=== PATIENT | female | born 1970 | race Caucasian/White ===

== ENCOUNTER 2023-07-15 17:45 | Emergency (ER) | payer OTHER, SELFPAY ==
[2023-07-15 17:53] VITALS: BP 125/72; PULSE 65; RESP 18; TEMP 37; O2SAT 100; BMI 18.9
--- NOTE | 2023-07-15 18:12 | CT_ITS ---
Patient: ROBBY CARRION Facility:?[facility] Patient ID:?[id number] Site Patient ID:?[id number]. Site :?[id number] Study:?CT-Abdomen/Pelvis w/o-07/15/2023 6:25:21 PM Ordering Physician:Mara Butterfield Final Report: INDICATION: Right flank pain. COMPARISON: None available. TECHNIQUE: CT of the abdomen and pelvis without intravenous contrast. Please note that all CT scans at this facility use dose modulation, iterative reconstruction, and/or weight-based dosing when appropriate to reduce radiation dose to as low as reasonably achievable. FINDINGS: The study is performed without intravenous contrast. This limits the sensitivity of the exam for the detection bowel pathology, focal lesions of the abdominopelvic viscera and vascular pathology including significant vascular stenosis, occlusion and dissection. ABDOMEN Liver: Normal hepatic attenuation. No suspicious focal hepatic lesion. No intrahepatic biliary ductal dilatation. Gallbladder: Normal gallbladder size. Normal common duct caliber. No pericholecystic inflammatory changes. Pancreas: Normal pancreatic attenuation. No focal lesion. Normal duct caliber. No peripancreatic inflammatory changes. Spleen: Normal splenic attenuation. No suspicious focal lesion. Adrenal Glands: Symmetrical adrenal glands. No focal lesion of significance. Kidneys: There is a 2 mm stone in the distal right ureter at the ureterovesical junction (series 2; image 111). No upstream dilatation of the right upper urinary tract. There are 2 nonobstructing interpolar left nephroliths measuring 2 mm or smaller (series 3; image 58). No suspicious focal lesion. No obstructing nephrolith or dilatation of the upper urinary tracts. Gastrointestinal tract: Normal caliber, attenuation and wall thickness of the gastrointestinal tract. No inflammatory changes. Normal mesentery. Normal appendix. Vascular: Normal outer wall to outer wall abdominal aortic caliber. Patency and luminal caliber of the abdominopelvic arterial and venous vasculature cannot be assessed on this noncontrast study. Additional findings: No incidental adenopathy. No significant ascites, free fluid or pneumoperitoneum. PELVIS No bladder lesion is identified. Hysterectomy. No abnormal free fluid. No incidental adenopathy. SKELETON AND BODY WALL No acute or suspicious incidental findings. LOWER THORAX Partially included lower thoracic wall, lungs, pleural spaces and mediastinum are otherwise without significant incidental findings. IMPRESSION: 2 mm stone in the distal right ureter at the level of the ureterovesical junction without upstream hydroureteronephrosis. Nonobstructing left nephrolithiasis as described above. The study is performed without intravenous contrast. This limits the sensitivity of the exam for the detection bowel pathology, focal lesions of the abdominopelvic viscera and vascular pathology including significant vascular stenosis, occlusion and dissection. Please note that all CT scans at this facility use dose modulation, iterative reconstruction, and/or weight-based dosing when appropriate to reduce radiation dose to as low as reasonably achievable. Dictated by Wilman Da Silva MD @ 07/15/2023 6:53:04 PM Signed by:?Wilman Da Silva MD @07/15/2023 6:53:04 PM (Electronic Signature)
--- NOTE | 2023-07-15 18:16 | ED_ITS ---
HPI - General Adult General Date Seen: 07/15/23 Chief complaint: Flank Pain Stated complaint: Kidney Stones Time Seen by Provider: 07/15/23 17:58 Source: patient Mode of arrival: ambulatory Limitations: no limitations History of Present Illness HPI narrative: Patient is a 53-year-old female presenting to the emergency department for dysuria and right flank pain. She states she has been having a stabbing sensation intermittently in her suprapubic region and difficulty urinating today. She then had a 10-15 minutes episode of right flank pain that felt like previous kidney stone. The flank pain has since fully resolved. She still is having the dysuria and states when she does go she get only go small amounts and feels like she has to urinate more after. Denies fevers, chills, weakness, numbness, abdominal pain, lightheadedness, nausea/vomiting, chest pain, shortness of breath. No other concerns noted at this time. Related Data Home Medications Medication Instructions Recorded Confirmed estradiol 0.05 mg/24 hr semiweekly 1 patch transdermal 02/18/22 01/29/23 transdermal patch Allergies Allergy/AdvReac Type Severity Reaction Status Date / Time azithromycin Allergy Intermediate swelling Verified 01/29/23 12:57 Review of Systems Status of ROS: Reports: 10 or more systems reviewed and unremarkable except as noted in History and below PFSH [facility] Social History Smoking Status: Never smoker Exam Narrative: Exam Narrative: Const: Well-nourished, Well-developed, in mild distress Eyes: PERRL, no conjunctival injection, and symmetrical lids HENT: Atraumatic external nose and ears. Moist mucous membranes. Neck: Symmetric, trachea midline, No thyromegaly. CVS: RRR, No murmurs or gallops. Peripheral pulses 2+ and equal in all extremities RESP: Unlabored respiratory effort. Clear to auscultation bilaterally. GI: Nontender/Nondistended, No rebound or guarding. No CVA tenderness MSK:Extremities w/o deformity, Normal Active ROM Skin: Warm, Dry. No rashes or lesions. Neuro: Normal Muscle tone, No focal neurological deficits. Psych: Awake, Alert, & Oriented x3. Appropriate mood and affect. Const: Vital Signs, click to edit/add: Vital Signs - 24 hr 07/15/23 17:53 Temperature 98.6 F Pulse Rate [Right Pulse Oximeter] 65 Respiratory Rate 18 Blood Pressure [Ri ght Upper Arm] 125/72 Pulse Oximetry 100 Oxygen Delivery Me thod Room Air Course Vital Signs Vital signs: Initial Vital Signs Temperature 98.6 F 07/15/23 17:53 Temperature Source Temporal Artery Scan 07/15/23 17:53 Pulse Rate 65 07/15/23 17:53 Respiratory Rate 18 07/15/23 17:53 Blood Pressure 125/72 07/15/23 17:53 Blood Pressure Mean 89 07/15/23 17:53 Blood Pressure Position Sitting 07/15/23 17:53 Pulse Oximetry 100 07/15/23 17:53 Oxygen Delivery Method Room Air 07/15/23 17:53 Vital Signs Temperature 98.6 F 07/15/23 17:53 Pulse Rate 65 07/15/23 17:53 Respiratory Rate 18 07/15/23 17:53 Blood Pressure 125/72 07/15/23 17:53 Pulse Oximetry 100 07/15/23 17:53 Oxygen Delivery Method Room Air 07/15/23 17:53 Temperature 98.6 F 07/15/23 17:53 Pulse Rate 65 07/15/23 17:53 Respiratory Rate 18 07/15/23 17:53 Blood Pressure 125/72 07/15/23 17:53 Pulse Oximetry 100 07/15/23 17:53 Oxygen Delivery Method Room Air 07/15/23 17:53 Medical Decision Making MDM Narrative Medical decision making narrative: Patient is a 53-year-old female presenting for right flank pain and suprapubic pain. She does seem to have symptoms of UTI. There is some concerns for a kidney stone also go to the episode of flank pain. Will do a CT scan to evaluate this. Also ordered CBC, CMP, urinalysis. Patient does not want anything for pain at this time. Lab work returned showing no concerning abnormalities. No signs of UTI at this time. There is some blood in her urine. CT scan returned showing a 2 mm stone in the distal right ureter at the level of the ureter vesicular junction with no hydroureteronephrosis. I believe the pain she initially felt was a short episode were it was obstructing but then passed. No signs of the infected stone though so she can be safely discharged. Will be sent home with Toradol via instymeds in case she develops pain again. She is agreeable to this plan. Lab Data Labs: Lab Results 07/15/23 07/15/23 Range/Units 18:32 18:50 WBC 5.68 (4.50-11.00) K/uL RBC 3.99 L (4.00-5.20) m/uL Hgb 12.6 (12.0-16.0) gm/dL Hct 35.5 (33.0-51.0) % MCV 89 (80-100) fL MCH 32 (26-34) pg MCHC 36 (32-36) gm/dL RDW Coeff of Luis 11.9 (11.5-15.5) % Plt Count 278 (140-440) K/uL Neut % (Auto) 60.2 (42.0-72.0) % Lymph % (Auto) 28.0 (20-44) % [facility] % (Auto) 9.3 (0.0-11.0) % Eos % (Auto) 2.3 (0.0-7.0) % Baso % (Auto) 0.2 (0.0-3.0) % Neut # (Auto) 3.42 (1.7-7.0) K/uL Lymph # (Auto) 1.59 (0.90-2.90) K/uL [facility] # (Auto) 0.50 (0.00-0.90) K/UL Eos # (Auto) 0.13 (0.00-0.50) K/uL Baso # (Auto) 0.01 (0.00-0.30) K/uL Abs Immat Gran (auto) 0.00 (0.00-0.30) K/uL Imm/Tot Granulo (auto) 0.0 % Sodium 138 (135-149) mmol/L Potassium 3.8 (3.6-5.1) mmol/L Chloride 107 (96-114) mmol/L Carbon Dioxide 27 (20-32) mmol/L Anion Gap 4 L (7-15) mEq/L BUN 15 (7-30) mg/dL Creatinine 0.7 (0.5-1.5) mg/dL Estimated Creat Clear 74.05 Estimated GFR 104 ml/min Glucose 91 (60-115) mg/dL Calcium 9.1 (8.4-10.6) mg/dL Total Bilirubin 0.3 (0.1-1.5) mg/dL AST 30 (12-35) U/L ALT 21 (4-35) U/L Alkaline Phosphatase 110 (40-150) U/L Total Protein 7.1 (6.0-8.3) g/dL Albumin 4.1 (3.3-5.0) g/dL Urine Color Yellow (Yellow) Urine Appearance Clear (Clear) Urine pH 7.0 (5.0-8.5) Ur Specific [place] 1.025 (1.000-1.030) Urine Protein Negative (Negative) Urine Glucose (UA) Negative (Negative) Urine Ketones Negative (Negative) Urine Blood 2+ A (Negative) Urine Nitrite Negative (Negative) Urine Bilirubin Negative (Negative) Urine Urobilinogen 0.2 (0.2-1.0) Ur Leukocyte Esterase Negative (Negative) Urine RBC 5-10 A (0-2) Urine WBC 0-2 (0-5) Ur Squamous Epith Cells Few (None-Few) Urine Bacteria Few A (None) Imaging Data CT scan abdomen and pelvis: Attestation: I have reviewed the pertinent imaging results. Radiologist's impression: 2 mm stone in the distal right ureter at the level of the ureterovesical junc tion without upstream hydroureteronephrosis. Nonobstructing left nephrolithiasis as described above. The study is performed without intravenous contrast. This limits the sensitivity of the exam for the detection bowel pathology, focal lesions of the abdominopelvic viscera and vascular pathology including significant vascular stenosis, occlusion and dissection. Please note that all CT scans at this facility use dose modulation, iterative reconstruction, and/or weight-based dosing when appropriate to reduce radiation dose to as low as reasonably achievable. Dictated by Wilman Da Silva MD @ 07/15/2023 6:53:04 PM Discharge Plan Discharge Clinical Impression: Right nephrolithiasis Patient Disposition: Home, Self-Care Condition: Stable Instructions: Kidney Stones (ED) Additional Instructions: If you developed the flank pain again take the Toradol. Do not take ibuprofen while taking Toradol as they are same class of drugs. Return to emergency department for new or worsening symptoms Prescriptions: No Action estradiol 0.05 mg/24 hr patch semiweekly 1 patch transdermal Follow Up/Referrals: Provider,Not a Local [Primary Care Provider] - Stand Alone Forms: MyHealth Info Instructions
--- OUTSIDE RECORDS SUMMARY | 2023-07-15 18:48 | XMS_ITS | Data Portability ---
Author Name Unknown Address [address] [place] [address] Phone [phone] Organization [facility], [id number] Address [address] [place] [address] Assessment Encounter Date Assessment Date Assessment LastModified by Organization Details LastModified Time 01/18/2023 01/18/2023 I spent a total of 20 minutes providing care for this patient including: preparing to see the patient, obtaining a medical history, completing documentation of visit information and plans in the EMR, counseling the patient and/or caregiver regarding her diagnosis, treatment options and follow up plans, as well as any necessary communication of subsequent test results to the patient [email or web address] Not available 01/26/2023 21:35:29 Plan of Treatment Reminders Order Date Submit Date Provider Last Modified By Organization Details Last Modified Time Details Appointments None recorded. Lab lipid panel, serum 2022 023 [facility], [address] [facility], [address], [place], [address], 3 00:09:28 glucose, blood 2022 023 [facility], [address] [facility], [address], [place], [address], 3 00:09:29 CBC 2022 023 [facility], [address] [facility], [address], [place], [address], 3 21:26:31 Referral None recorded. Procedures None recorded. Surgeries None recorded. Imaging US, pelvis, transabdomi nal + transvagina l 2022 023 jelani [id number] le_alexsandra, [address] [facility] [address], [place], [address], 18:11:41 Medication Orders estradiol 0.05 mg/24 hr semiweekly transdermal patch 2022 023 [facility], [facility] [place], [address], 09:41:33 Patient TargetsNo targets recorded. Patient Instructions Encounter Date Encounter Id Patient Instructions Last Modified By Organization Details Last Modified Time 12/21/2022 [id number] - Encouraged breast self-awareness and monthly breast exams. - Recommend mammogram annually - Encouraged regular exercise. - Discussed calcium, vitamin D, and weight bearing exercise for bone health. - Discussed osteoporosis screening guidelines. - Recommend colonoscopy per guidelines - Encouraged patient to establish care with a PCP to manage non-MANAGER LIFE concerns - Reviewed current cervical cancer screening guidelines. No further paps needed. [email or web address] Not available 12/22/2022 09:42:19 Reason for Referral None Reported. Results Created Date Observation Date Name Description Value Unit Range Abnormal Flag LastModifiedBy Organization Detail LastModifiedTime 12/22/1912/21/2022 CBC WITH PLATE LETS WBC count 6.3 10e3/ uL 4.0-11 .0 Not Available [address], [place], [address], 12/21/2022 21:26:31 12/22/19 23 12/21/2022 CBC WITH PLATE LETS RBC count 4.15 10e6/ uL 3.80-5 .20 Not Available [address], [place], [address], 12/21/2022 21:26:31 12/22/19 23 12/21/2022 CBC WITH PLATE LETS hemoglobin 13.3 g/dL 11.7-1 5.7 Not Available [address], [place], [address], 12/21/2022 21:26:31 12/22/19 23 12/21/2022 CBC WITH PLATE LETS hematocrit 37.7 % 35.0-4 7.0 Not Available [address], [place], [address], 12/21/2022 21:26:31 12/22/19 23 12/21/2022 CBC WITH PLATE LETS MCV 91 fL 78-100 Not Available [address], [place], [address], 12/21/2022 21:26:31 12/22/19 23 12/21/2022 CBC WITH PLATE LETS MCH 32.0 pg 26.5-3 3.0 Not Available [address], [place], [address], 12/21/2022 21:26:31 12/22/19 23 12/21/2022 CBC WITH PLATE LETS MCHC 35.3 g/dL 31.5-3 6.5 Not Available [address], [place], [address], 12/21/2022 21:26:31 12/22/19 23 12/21/2022 CBC WITH PLATE LETS RDW 12.2 % 10.0-1 5.0 Not Available [address], [place], [address], 12/21/2022 21:26:31 12/22/19 23 12/21/2022 CBC WITH PLATE LETS platelet count 308 10e3/ uL 150-45 0 Not Available [address], [place], [address], 12/21/2022 21:26:31 01/19/20 23 01/18/2023 LIPID PANEL cholesterol 204 mg/dL <200 high Not Available [address], [place], [address], 01/19/2023 00:09:28 01/19/2001/18/2023 LIPID PANEL triglyceride s 49 mg/dL <150 Not Available [address], [place], [address], 01/19/2023 00:09:28 01/19/2001/18/2023 LIPID PANEL direct measure HDL 61 mg/dL >=50 Not Available [address], [place], [address], 01/19/2023 00:09:28 01/19/2001/18/2023 LIPID PANEL LDL cholesterol calculated 133 mg/dL <=100 high Not Available [address], [place], [address], 01/19/2023 00:09:28 01/19/2001/18/2023 LIPID PANEL non HDL cholesterol 143 mg/dL <130 high Not Available [address], [place], [address], 01/19/2023 00:09:28 01/19/2001/18/2023 GLUCO SE SERUM OR PLASM A glucose 83 mg/dL 70-99 Not Available [address], [place], [address], 01/19/2023 00:09:29 01/19/2001/18/2023 GLUCO SE SERUM OR PLASM A patient fasting > 8hrs? yes Not Available [address], [place], [address], 01/19/2023 00:09:29 12/27/19 23 05/10/2021 , luis felipe shultz No observ ation record ed. BARCODE Not Available 12/26/2022 17:41:51 12/27/1905/10/2021 MAMMO , diagn ostic , digit al, bilat eral No observ ation record ed. [facility] Not Available 12/26/2022 18:08:33 01/19/2001/18/2023 US, pelvi s, trans abdom inal + trans vagin al No observ ation record ed. [place] Elvia [address], [place], [address], 01/27/2023 11:30:37 01/20/2001/19/2023 MAMMO , scree wilfrid, tomos ynthe sis, bilat eral No observ ation record ed. [email or web address] [id number], [place], [address], 01/19/2023 12:05:14 01/20/20 23 01/19/2023 lay lette r No observ ation record ed. KAYLENE [id number], [place], [address], 01/20/2023 09:46:42 Result Notes Documentation Provider Name and Address Organization Details Recorded Time Mammo, Screening, Tomosynthesis, Bilateral : Mammogram Screening Mammogram Type: 3D Bilateral Radiological Classification: Bi-Rads 2 - Benign Findings ACR Category: d-Extremely dense-lowering sensitivity of mammogram Followup planned: Screening mammogram one year Dhiraj urbina, [place] - [facility] 01/19/2023 12:05:14 Problems Name Status Onset Date Resolution Date Notes Provider Name and Address Organization Details Recorded Time Endometriosis (clinical) Active Keerthi Huston null, [place] - [facility] 12/21/2022 14:06:53 Uterine leiomyoma Active Keerthi Huston null, [place] - [facility] 12/21/2022 14:07:02 Malignant melanoma Active 12/22/19 Keerthi Huston null, [place] - [facility] 12/21/2022 14:07:34 Migraine Active Keerthi Huston null, [place] - [facility] 12/21/2022 14:08:07 Problem Notes None recorded. Procedures Surgical History Date Name Laterality Status Provider Name and Address Organization Details Recorded Time 01/19/20 23 Date of Last Mammogram completed Dhiraj urbina [facility] 01/19/2023 12:05:26 02/18/20 21 Date of Last Colonoscopy completed Keerthimilly urbina [facility] 12/21/2022 14:08:46 01/19/20 21 robot assisted laparoscopic total [place] [address] [facility],[address], [place], [address], [place] [facility] 12/22/2022 09:20:55 Imaging Results Imaging Date Name Status LastModified by Organization Details LastModified Time 05/10/2021 US, breast, unilateral completed [facility] Information not available 12/26/2022 17:41:51 05/10/2021 MAMMO, diagnostic, digital, bilateral completed [facility] Information not available 12/26/2022 18:08:33 01/18/2023 US, pelvis, transabdominal + transvaginal completed [email or web address] Ryane [address], [place], [address], 01/27/2023 11:30:37 01/19/2023 MAMMO, screening, tomosynthesis, bilateral completed [email or web address] [id number] _[address], [place], [address], 01/19/2023 12:05:14 01/19/2023 lay letter completed KAYLENE [id number] _[address], [address], 01/20/2023 09:46:42 Procedure Notes None recorded. Medical Equipment None Reported. Allergies No known drug allergies Medications Name Sig Start Date Stop Date Status Note LastModified by Organization Details LastModified Time dhea 5mg suppository UNWRAP AND INSERT ONE SUPPOSITO RY VAGINALLY TWICE A WEEK active Not Available Not Available No t Available fluconazole 150 mg tablet 12/21 completed Not Available Not Available Not Available estradiol 0.05 mg/24 hr semiweekly transdermal patch Apply 1 patch twice a week by transderm al route. active Not Available Not Available No t Available azelaic acid 15 % topical gel APPLY THIN LAYER TO FACE 1-2X DAILY , ONGOING 12/21 completed Not Available Not Available Not Available Vitals Date Recorded Body weight Body mass index (BMI) Body height Systolic blood pressure Diastolic blood pressure Provider Name and Address Organization Details Last Updated DateTime 12/21/2022 46104.27 g 20.9 kg/m2 162.56 cm 110 mm[Hg] 60 mm[Hg] [facility] 14:13:22 Date Recorded Body height Systolic blood pressure Diastolic blood pressure Provider Name and Address Organization Details Last Updated DateTime 01/18/2023 162.56 cm 102 mm[Hg] 70 mm[Hg] [facility] 01/18/2023 16:34:40 Social History Question Answer Notes LastModified by Scifiniti Details LastModified Time Tobacco Smoking Status [place] [address] [facility],[address], [place], [address], [facility] 12/22/2022 09:18:49 What Is Your Level Of Alcohol Consumption? Occasional Information not available 12/22/2022 History Of Domestic Violence No Information no t available 12/22/2022 What Is Your Relationship Status? Single [email or web address] Information not available 12/21/2022 Do You Use Any Illicit Or Recreational Drugs? No Information not available 12/22/2022 Sex: Female Functional Status Question Answer Note LastModified by Scifiniti Details LastModified Time What is your exercise level? Occasional Information not available 12/22/2022 Mental Status None recorded. Family History Relationship Description Onset Age of this Age Resolved Age Notes Paternal Grandmother Malignant tumor of breast Paternal Grandfather Family history of Cardiovascular disease Paternal Grandfather Anal polyp Paternal Grandfather Disorder of thyroid gland Paternal Grandfather Hypercholesterolemia Mother Deep venous thrombos is of lower extremity Medical History Condition Response Neurology- Headaches/Migraines Y Cancer- Skin Y GI- Crohn's/Ulcerative Colitis Y Urology- Stones Y Gynecological History Statement/Question Response History of Endometriosis Y History of Abnormal PAP N Date of Last Mammogram 01/18/2023 Date of Last Colonoscopy 02/17/2021 History of Cervical Dysplasia N History of Sexually Transmitted Infectio n N Current Control Method Hysterectom y History of Fibroids Y Date of Last Pap Smear Obstetrics History GPAL:G 0 P 0 0 0 0 Past Encounters Encounter ID Performer Location Encounter Start Date Encounter Closed Date Diagnosis/Indication Diagnosis SNOMED-CT Code [id number] FAISAL COONEY MD [id number] [facility] [address] [facility], [address] [place] [address] 12/21/2022 13:46:53 12/22/2022 12:53:29 History of anemia 084304602 Menopausal symptom 92890 002 Right lowe r quadrant pain 159167802 Gynecologi c examination [id number] MALENA SULLIVAN MD [id number] [facility] [address] [facility], [address] [place] [address] 01/18/2023 15:08:53 01/31/2023 12:51:33 Pain in pelvis 86786428 [id number] FAISAL COONEY MD [id number] [facility] [address] [facility], [address] [place] [phone] 01/18/2023 16:11:49 02/01/2023 14:41:45 Hyperlipidemia screening 374702362 Diabetes m ellitus screening 345884136 Right lowe r quadrant pain 205053679 Health Concerns Section Related Observation LastModified by Organization Detai ls LastModified Time None Recorded Concern Status LastModified by Organization Details LastModified Time None Recorded Advance Directives Directive None Recorded Payers Encounter Date Sequence Insurance Name Policy Number Policy Josue Covered Member ID Josue Member ID Guarantor Name 01/18/2023 1 [facility] [id number] Mis Ball [id number] Mis Ball 01/18/2023 1 [facility] [id number] Mis Ball [id number] Mis Ball 12/21/2022 1 [facility] [id number] Mis Ball [id number] Mis Ball Notes Date Note Type Note Provider Name and Address Organization Details Recorded Time 12/21/2022 text/html HPI Notes: Nate varghese Postmenopausal ([facility]) Reported by patient. Patient Relationship To Practice: new patient Current Medical History: no active medical problems Menopausal Symptoms: not present; using estradiol patch and DHEA vaginal supp and these are working well for her. HRT: current HRT regimen: continuous; wishes to continue Vaginal Bleeding: no Sexually Active: Yes: Mammogram: due Pap Smear +/- HPV Cotesting: not applicable Thyroid/Lipid Screening: due Colonoscopy: up-to-date Bone Density Study: not applicable Notes: Reports pain in RLQ since her hysterectomy. It was daily for a long time and then seemed to iprove. Now has returned. Mild, low level pain most of the time, [place] [address], [place], [address], [facility] 12/22/2022 09:42:57 01/18/2023 text/html HPI Notes: Karen manley was seen for annual exam recently and c/o RLQ pain which has been present off and on since her hysterectomy in 01/2021. It seemed to resolve but then returned. The pain is very low level most of the time. U/S was recommended and done today: uterus absent, left ovary not seen, right ovary with 0.9x1.2x1.2 [place] [address], [place], [address], [facility] 01/26/2023 21:35:48 OBGyn Episode No OBEpisode recorded.
[2023-07-15 18:50] LABS: Basophils Absolute Auto 0.01 K/uL (0.00-0.30); Basophils Percent Auto 0.2 % (0.0-3.0); Eosinophils Absolute Auto 0.13 K/uL (0.00-0.50); Eosinophils Percent Auto 2.3 % (0.0-7.0); Hematocrit 35.5 % (33.0-51.0); Hemoglobin* 12.6 gm/dL (12.0-16.0); Lymphocytes Absolute Auto 1.59 K/uL (0.90-2.90); Mean Corpuscular HGB Conc 36 gm/dL (32-36); Mean Corpuscular Hemoglobin 32 pg (26-34); Mean Corpuscular Volume 89 fL (80-100); Monocytes Percent Auto 9.3 % (0.0-11.0); Neutrophils Absolute Auto 3.42 K/uL (1.7-7.0); Neutrophils Percent Auto 60.2 % (42.0-72.0); Platelet Count* 278 K/uL (140-440); RDW Coefficient of Variation % 11.9 % (11.5-15.5); Red Blood Count 3.99 m/uL (4.00-5.20); White Blood Count* 5.68 K/uL (4.50-11.00)
[2023-07-15 18:53] LABS: Slide Review Reflex No
[2023-07-15 19:01] LABS: Appearance Urine Clear (Clear); Bilirubin Urine Negative (Negative); Blood Urine 2+ (Negative); Color Urine Yellow (Yellow); Glucose Urine Negative (Negative); Ketones Urine Negative (Negative); Leukocyte Esterase Urine Negative (Negative); Nitrite Urine Negative (Negative); Protein Urine Negative (Negative); Specific Gravity Urine 1.025 (1.000-1.030); Urobilinogen Urine 0.2 (0.2-1.0)
[2023-07-15 19:05] LABS: Albumin* 4.1 g/dL (3.3-5.0); Chloride* 107 mmol/L (96-114); Potassium* 3.8 mmol/L (3.6-5.1); Sodium* 138 mmol/L (135-149)
[2023-07-15 19:07] LABS: Creatinine* 0.7 mg/dL (0.5-1.5); Est. Creatinine Clearance* 74.05; Estimated Glomerular Filt Rate 104 ml/min
[2023-07-15 19:08] LABS: Alanine Aminotransferase* 21 U/L (4-35); Alkaline Phosphatase* 110 U/L (40-150); Anion Gap 4 mEq/L (7-15); Aspartate Amino Transferase* 30 U/L (12-35); Bilirubin Total* 0.3 mg/dL (0.1-1.5); Blood Urea Nitrogen* 15 mg/dL (7-30); Carbon Dioxide* 27 mmol/L (20-32); Glucose* 91 mg/dL (60-115); Total Protein* 7.1 g/dL (6.0-8.3)
[2023-07-15 19:09] LABS: Calcium* 9.1 mg/dL (8.4-10.6)
[2023-07-15 19:29] LABS: Bacteria Urine Few; Squamous Epithelial Cell Urine Few (None-Few); WBC Urine 0-2 (0-5)
[2023-07-15 20:08] VITALS: BP 130/78; PULSE 59; RESP 16; O2SAT 100
== END 2023-07-15 20:10 | disposition home or self-care (01) ==
PROVIDERS: Emergency Provider Student in an Organized Health Care Education/Training Program
DX: N20.0 Calculus of kidney (principal)
CPT/HCPCS: 36415; 74176; 80053; 81001; 85025; 87086; 99283; 99284